=== PATIENT | female | born 1975 | race Two or more races ===

== ENCOUNTER 2021-02-19 11:00 | Inpatient (IN) | payer OTHER ==
[~2021-02-19] VITALS: Ht 172.7 cm; Wt 91.6 kg
[2021-02-19] MEDS ORDERED: FERROUS SULFATE PO (13:38)
[2021-02-26] MEDS ORDERED: FEOSOL325 MG PO (11:13)
[2021-02-27] MEDS ORDERED: NAPR500T14 PO (08:41)
[2021-02-27] MEDS ORDERED: Tylenol #3 PO (08:41)
== END 2021-02-27 11:14 | disposition home or self-care (01) | DRG 743 ==
LOC: O/R 02-26 08:05 → SURH 02-26 10:30 → OB/GYN 02-26 13:50
PROVIDERS: ADMIT Obstetrics & Gynecology; ATTEND Obstetrics & Gynecology
PROC: 0UT2FZZ Resection of Bilateral Ovaries, Via Natural or Artificial Opening With Percutaneous Endoscopic Assistance (ICD-10-PCS; 2021-02-26)
PROC: 0UT7FZZ Resection of Bilateral Fallopian Tubes, Via Natural or Artificial Opening With Percutaneous Endoscopic Assistance (ICD-10-PCS; 2021-02-26)
PROC: 0UQF8ZZ Repair Cul-de-sac, Via Natural or Artificial Opening Endoscopic (ICD-10-PCS; 2021-02-26)
PROC: 0USG8ZZ Reposition Vagina, Via Natural or Artificial Opening Endoscopic (ICD-10-PCS; 2021-02-26)
PROC: 0TJB8ZZ Inspection of Bladder, Via Natural or Artificial Opening Endoscopic (ICD-10-PCS; 2021-02-26)
PROC: 0UT9FZZ Resection of Uterus, Via Natural or Artificial Opening With Percutaneous Endoscopic Assistance (ICD-10-PCS; principal; 2021-02-26 10:30)
DX: D25.0 Submucous leiomyoma of uterus (principal); N81.11 Cystocele, midline; D50.0 Iron deficiency anemia secondary to blood loss (chronic); N72 Inflammatory disease of cervix uteri; N80.0 Endometriosis of uterus; D25.1 Intramural leiomyoma of uterus; D25.2 Subserosal leiomyoma of uterus; N83.8 Other noninflammatory disorders of ovary, fallopian tube and broad ligament; N94.5 Secondary dysmenorrhea; Z20.822 Contact with and (suspected) exposure to COVID-19